=== PATIENT | male | born 1990 | race Caucasian/White ===

== ENCOUNTER 2020-11-28 11:56 | Emergency (ER) | payer OTHER ==
[2020-11-28 12:23] VITALS: BP 158/93; RESP 18; TEMP 98.9
[2020-11-28] MEDS ORDERED: LORazepam 2 MG/ML INJ IM STA (14:19)
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
--- NOTE | 2020-11-28 15:00 | XR ---
EXAMINATION TYPE: XR chest 2V DATE OF EXAM: 11/28/2020 COMPARISON: NONE HISTORY: Chest pain TECHNIQUE: Frontal and lateral views of the chest are obtained. FINDINGS: There is no focal air space opacity. No evidence for pneumothorax. No pleural effusion. The cardiac silhouette size is within normal limits. The osseous structures are grossly intact. IMPRESSION: 1. No acute cardiopulmonary process.
[2020-11-28 18:45] VITALS: PULSE 88
== END 2020-11-28 16:13 | disposition home or self-care (01) ==
LOC: EC 11:56
DX: F41.9 Anxiety disorder, unspecified (principal); R06.02 Shortness of breath; F17.290 Nicotine dependence, other tobacco product, uncomplicated
CPT/HCPCS: 93005; 71046; 99285; 96372; J2060